=== PATIENT | female | born 1975 | race African-American/Black ===

== ENCOUNTER 2020-03-07 12:52 | Inpatient (IN) | payer MEDICAID, OTHER ==
[~2020-03-07] VITALS: Ht 160 cm; Wt 60.0 kg
[2020-03-07] MEDS ORDERED: DEXTROSE (50%) 50ML SYRG IV PRN (13:00)
[2020-03-07] MEDS ORDERED: INSULIN LANTUS (GLARGINE) 1 /0.01ml (100units/ml) SC ONE (13:00)
[2020-03-07] MEDS ORDERED: InsuLIN REG 1unit/0.01ml Soln (100units/ml) IV ONE (13:00)
[2020-03-07] MEDS ORDERED: SODIUM CHLORIDE 0.9% 1,000 ML IV ONE ×2 (13:00→21:45)
[2020-03-07] MEDS ORDERED: SODIUM BICARBONATE 8.4 % INJ 50ML VIAL IV ONE ×2 (14:00→21:45)
[2020-03-07] MEDS: ACCU-CHEK COMFORT CURVE STRIP VI SCH ×7 (15:43→22:35)
[2020-03-07] MEDS: InsuLIN R (HUMAN) 100 UNITS in SODIUM CHL 0.9% 99 ML IV SCH ×2 (17:04→18:31)
[2020-03-07 17:48] LABS: Basophils # (auto) 0.1 10 ^3/uL (0-0.2); Basophils % (auto) 0.3 % (0.0-2.0); Eosinophils # (auto) 0 10 ^3/uL (0-0.8); Hematocrit 36.2 % (36.0-46.0); Hemoglobin 10.3 g/dL (12.2-16.2); Lymphocytes # (auto) 1.4 10 ^3/uL (0.4-5.4); Lymphocytes % (auto) 5.9 % (10.0-50.0); Mean Corpuscular Hemoglobin 26.9 pg (28.0-32.0); Mean Corpuscular Hgb Conc. 28.5 g/dL (32.0-36.0); Mean Corpuscular Volume 94.4 fL (80.0-100.0); Monocytes # (auto) 1.5 10 ^3/uL (0-1.3); Monocytes % (auto) 6.6 % (0.0-12.0); Neutrophils # (auto) 20.2 10 ^3/uL (1.6-8.6); Neutrophils % (auto) 87.2 % (37.0-80.0); Nucleated Red Blood Cells % 0.1 %; Red Blood Cells 3.83 10^6/uL (4.0-5.20); Red Cell Distribution Width 16.8 % (11.8-14.3); White Blood Cell 23.2 10^3/uL (4.4-10.8)
[2020-03-07 17:55] LABS: Albumin 2.6 g/dL (3.4-5.0); Anion Gap 26 (5-15); Calcium 8.5 mg/dL (8.5-10.1); Chloride 102 mmol/L (98-107); Magnesium 3.4 mg/dL (1.6-2.6); Sodium 135 mmol/L (136-145)
[2020-03-07 17:57] LABS: Alanine Aminotransferase 24 U/L (13-56); Aspartate Aminotransferase 31 U/L (15-37); GFR African American 12 mL/min; GFR Non-African American 10 mL/min
[2020-03-07 17:59] LABS: Alkaline Phosphatase 302 U/L (45-117); Bilirubin, Total 0.5 mg/dL (0.2-1.0); Total Protein 8.2 g/dL (6.4-8.2)
[2020-03-07 20:08] LABS: BUN/Creatinine Ratio 22.2; Potassium 5.9 mmol/L (3.5-5.1)
[2020-03-07 20:09] LABS: Carbon Dioxide 7 mmol/L (21-32)
[2020-03-07 20:10] LABS: Blood Urea Nitrogen 111 mg/dL (7-18); Glucose 1091 mg/dL (74-106)
[2020-03-07] MEDS ORDERED: SODIUM BICARBONATE 8.4% INJ 50ML SYRINGE ONE (22:24)
[2020-03-07] MEDS ORDERED: InsuLIN R (HUMAN) 100 UNITS in SODIUM CHL 0.9% 99 ML IV SCH (22:30)
[2020-03-07] MEDS ORDERED: ACETAMINOPHEN 325 MG TAB PO PRN (22:45)
[2020-03-07] MEDS ORDERED: DOCUSATE SOD 100 MG CAP PO PRN (22:45)
[2020-03-07] MEDS ORDERED: MORPHINE SULFATE INJECTION 2 MG/ML SYRG IV PRN (22:45)
[2020-03-07] MEDS ORDERED: SODIUM CHLORIDE 0.9% 1,000 ML IV SCH (22:45)
[2020-03-07] MEDS ORDERED: NITROGLYCERIN 0.4 MG SL TAB SL PRN (22:45)
[2020-03-07] MEDS ORDERED: hydrALAZINE HCL 20 MG/ML VL IV PRN (23:00)
[2020-03-07] MEDS ORDERED: cefTRIAXone 1GM/50ML D5W 50 ML IV SCH (23:46)
[2020-03-08] MEDS: ACCU-CHEK COMFORT CURVE STRIP VI SCH ×12 (00:02→18:23)
[2020-03-08] MEDS: InsuLIN R (HUMAN) 100 UNITS in SODIUM CHL 0.9% 99 ML IV SCH ×2 (01:42→03:46)
[2020-03-08] MEDS ORDERED: InsuLIN REG 1unit/0.01ml Soln (100units/ml) ONE (03:31)
[2020-03-08] MEDS: HYDROcodone-ACET 5/325MG TAB PO PRN ×2 (03:46→21:09)
[2020-03-08 07:25] LABS: Alanine Aminotransferase 23 U/L (13-56); Albumin 2.7 g/dL (3.4-5.0); Anion Gap 12 (5-15); Aspartate Aminotransferase 22 U/L (15-37); BUN/Creatinine Ratio 24.6; Calcium 9.2 mg/dL (8.5-10.1); Carbon Dioxide 24 mmol/L (21-32); Chloride 114 mmol/L (98-107); GFR African American 15 mL/min; GFR Non-African American 12 mL/min; Potassium 3.7 mmol/L (3.5-5.1); Sodium 150 mmol/L (136-145)
[2020-03-08 07:28] LABS: Alkaline Phosphatase 275 U/L (45-117); Bilirubin, Total 0.2 mg/dL (0.2-1.0)
[2020-03-08 08:45] LABS: Basophils # (auto) 0.1 10 ^3/uL (0-0.2); Basophils % (auto) 0.5 % (0.0-2.0); Eosinophils # (auto) 0 10 ^3/uL (0-0.8); Hematocrit 31.4 % (36.0-46.0); Lymphocytes # (auto) 0.9 10 ^3/uL (0.4-5.4); Lymphocytes % (auto) 3.4 % (10.0-50.0); Mean Corpuscular Volume 78.3 fL (80.0-100.0); Monocytes # (auto) 1.4 10 ^3/uL (0-1.3); Monocytes % (auto) 5.1 % (0.0-12.0); Neutrophils # (auto) 24.3 10 ^3/uL (1.6-8.6); Nucleated Red Blood Cells % 0.1 %; Red Cell Distribution Width 15.2 % (11.8-14.3); White Blood Cell 26.7 10^3/uL (4.4-10.8)
[2020-03-08 09:32] LABS: Blood Urea Nitrogen 104 mg/dL (7-18); Glucose 443 mg/dL (74-106)
[2020-03-08] MEDS ORDERED: FAMOTIDINE (10MG/ML) 2ML VL IV SCH ×2 (10:00→16:45)
[2020-03-08] MEDS: INSULIN LANTUS (GLARGINE) 1 /0.01ml (100units/ml) SC SCH (10:24)
[2020-03-08] MEDS: HEPARIN SODIUM (PORCINE) 5000 UNITS/ML 1ML VIAL SC SCH ×2 (10:25→23:16)
[2020-03-08] MEDS ORDERED: SOD CHL 0.45% 1,000 ML IV ONE (11:15)
[2020-03-08] MEDS ORDERED: levoFLOXacin 500MG 100 ML IV ONE (12:00)
[2020-03-08] MEDS: SOD CHL 0.45% 1,000 ML IV SCH ×2 (12:26→18:29)
[2020-03-08] MEDS ORDERED: cefTRIAXone 1GM/50ML D5W 50 ML IV ONE (12:30)
[2020-03-08 12:48] LABS: Urine Bacteria MANY /hpf (None Seen); Urine Blood 3+ /uL (Negative); Urine Budding Yeast LOADED /hpf (None Seen); Urine WBC 3952 /hpf (0 - 5); Urine WBC Clumps PRESENT /hpf (None Seen)
[2020-03-08 12:58] LABS: Urine Specific Gravity 1.015 (1.001-1.035)
[2020-03-08] MEDS: LINEZOLID 600MG/300ML 300 ML IV SCH ×2 (13:47→23:16)
[2020-03-08] MEDS ORDERED: metroNIDAZOLE 500MG/100ML 100 ML IV SCH (14:00)
[2020-03-08] MEDS ORDERED: PANTOPRAZOLE 40 MG/10 ML VIAL INJ IV SCH (14:30)
[2020-03-08] MEDS ORDERED: PIPERACILLIN-TAZOB 3.375GM 100 ML IV ONE (14:30)
[2020-03-08] MEDS ORDERED: DEXTROSE (50%) 50ML SYRG IV PRN (16:15)
[2020-03-08] MEDS ORDERED: ACCU-CHEK COMFORT CURVE STRIP VI SCH (18:00)
[2020-03-08] MEDS: InsuLIN REG 1unit/0.01ml Soln (100units/ml) SC SCH (18:28)
[2020-03-08 19:42] LABS: Amylase 517 U/L (25-115)
[2020-03-08 19:51] LABS: Lipase 2576 U/L (73-393)
[2020-03-08] MEDS: PIPERACILLIN-TAZOB 2.25GM 50 ML IV SCH (20:24)
[2020-03-08] MEDS: BUDESONIDE (INHALATION) 180 MCG IH IN SCH (22:00)
[2020-03-09] MEDS: ACCU-CHEK COMFORT CURVE STRIP VI SCH ×5 (00:01→23:35)
[2020-03-09] MEDS: SOD CHL 0.45% 1,000 ML IV SCH ×4 (03:21→16:47)
[2020-03-09] MEDS: PIPERACILLIN-TAZOB 2.25GM 50 ML IV SCH ×3 (03:21→23:19)
[2020-03-09] MEDS: InsuLIN REG 1unit/0.01ml Soln (100units/ml) SC SCH ×5 (06:12→23:35)
[2020-03-09 06:28] LABS: Hematocrit 27.7 % (36.0-46.0); Hemoglobin 9.1 g/dL (12.2-16.2); Mean Corpuscular Hemoglobin 25.7 pg (28.0-32.0); Mean Corpuscular Hgb Conc. 32.8 g/dL (32.0-36.0); Mean Corpuscular Volume 78.2 fL (80.0-100.0); Red Blood Cells 3.54 10^6/uL (4.0-5.20); Red Cell Distribution Width 15.1 % (11.8-14.3); White Blood Cell 26.5 10^3/uL (4.4-10.8)
[2020-03-09 06:32] LABS: Basophils % (manual) 0 (0.0-2.0); Blast Cells 0; Eosinophils % (manual) 0 (0-7); Metamyelocytes % 0; Myelocytes % 0; Promyelocytes % 0; Reactive Lymphocytes 0
[2020-03-09 06:39] LABS: Albumin 2.3 g/dL (3.4-5.0); Potassium 3.4 mmol/L (3.5-5.1)
[2020-03-09 06:41] LABS: BUN/Creatinine Ratio 22.5
[2020-03-09 06:58] LABS: Bilirubin, Total 0.3 mg/dL (0.2-1.0); Total Protein 7.9 g/dL (6.4-8.2)
[2020-03-09 07:07] LABS: Band Neutrophils % (manual) 11; Lymphocytes % (manual) 8 (10.0-50.0); Monocytes % (manual) 6 (0-12)
[2020-03-09] MEDS ORDERED: cefTRIAXone 1GM/50ML D5W 50 ML IV SCH (09:00)
[2020-03-09] MEDS: BUDESONIDE (INHALATION) 180 MCG IH IN SCH ×2 (09:42→20:07)
[2020-03-09] MEDS ORDERED: FAMOTIDINE (10MG/ML) 2ML VL IV SCH (10:00)
[2020-03-09] MEDS: DexAMETHasone SOD PHOS 10MG/1ML VIAL INJ IV SCH (10:33)
[2020-03-09] MEDS: LINEZOLID 600MG/300ML 300 ML IV SCH (10:33)
[2020-03-09] MEDS: ZINC SULFATE 220mg CAP or TAB PO SCH (10:34)
[2020-03-09] MEDS: HEPARIN SODIUM (PORCINE) 5000 UNITS/ML 1ML VIAL SC SCH ×2 (10:39→23:02)
[2020-03-09] MEDS: ASCORBIC ACID 1,000 MG TAB PO SCH (10:39)
[2020-03-09] MEDS: CHOLECALCIFEROL (VITD3) 2,000 UNIT CAP/TAB PO SCH (10:39)
[2020-03-09] MEDS: INSULIN LANTUS (GLARGINE) 1 /0.01ml (100units/ml) SC SCH (10:40)
[2020-03-09] MEDS ORDERED: PANTOPRAZOLE 40 MG/10 ML VIAL INJ IV ONE (11:15)
[2020-03-09] MEDS ORDERED: POTASSIUM EFFERVESENT TAB 25 MEQ PO ONE (11:15)
[2020-03-09 16:08] LABS: Hemoglobin 8.8 g/dL (12.2-16.2)
[2020-03-09 16:17] LABS: INR 1.22 (0.9-1.15)
[2020-03-09] MEDS: HYDROcodone-ACET 5/325MG TAB PO PRN ×2 (16:39→23:31)
[2020-03-09 19:08] VITALS: BP 110/70
[2020-03-09 21:38] LABS: Hematocrit 26.2 % (36.0-46.0); Hemoglobin 8.5 g/dL (12.2-16.2)
[2020-03-09] MEDS ORDERED: PANTOPRAZOLE 40 MG/10 ML VIAL INJ IV SCH (22:00)
[2020-03-10] VITALS: BP 130/70
[2020-03-10] MEDS: LINEZOLID 600MG/300ML 300 ML IV SCH ×3 (00:18→23:22)
[2020-03-10 01:56] LABS: Hematocrit 25.7 % (36.0-46.0); Hemoglobin 8.2 g/dL (12.2-16.2)
[2020-03-10] MEDS: PIPERACILLIN-TAZOB 2.25GM 50 ML IV SCH ×3 (05:15→20:22)
[2020-03-10] MEDS: SOD CHL 0.45% 1,000 ML IV SCH ×3 (05:15→23:33)
[2020-03-10] MEDS: ACCU-CHEK COMFORT CURVE STRIP VI SCH ×4 (05:56→23:22)
[2020-03-10] MEDS: InsuLIN REG 1unit/0.01ml Soln (100units/ml) SC SCH ×4 (05:56→23:23)
[2020-03-10] MEDS: BUDESONIDE (INHALATION) 180 MCG IH IN SCH ×2 (05:59→18:20)
[2020-03-10 06:35] LABS: Eosinophils # (auto) 0 10 ^3/uL (0-0.8); Lymphocytes # (auto) 1.4 10 ^3/uL (0.4-5.4); Monocytes # (auto) 0.3 10 ^3/uL (0-1.3); Neutrophils % (auto) 91.6 % (37.0-80.0); Nucleated Red Blood Cells % 0.4 %
[2020-03-10 06:38] LABS: Basophils # (auto) 0.2 10 ^3/uL (0-0.2); Basophils % (auto) 0.7 % (0.0-2.0); Hematocrit 25.6 % (36.0-46.0); Hemoglobin 8.4 g/dL (12.2-16.2); Lymphocytes % (auto) 6.2 % (10.0-50.0); Mean Corpuscular Hemoglobin 25.9 pg (28.0-32.0); Mean Corpuscular Hgb Conc. 32.8 g/dL (32.0-36.0); Mean Corpuscular Volume 78.8 fL (80.0-100.0); Monocytes % (auto) 1.5 % (0.0-12.0); Neutrophils # (auto) 20.9 10 ^3/uL (1.6-8.6); Red Blood Cells 3.24 10^6/uL (4.0-5.20); Red Cell Distribution Width 15.2 % (11.8-14.3); White Blood Cell 22.9 10^3/uL (4.4-10.8)
[2020-03-10] MEDS: ONDANSETRON HCL 4 MG/2 ML VIAL IV PRN (06:48)
[2020-03-10] MEDS: ALBUTEROL SULF HFA 90MCG INH 200DOSE IN PRN (07:20)
[2020-03-10 07:58] VITALS: BP 137/86
[2020-03-10 08:18] LABS: Albumin 1.9 g/dL (3.4-5.0); BUN/Creatinine Ratio 19.2; Calcium 8.6 mg/dL (8.5-10.1); Potassium 3.4 mmol/L (3.5-5.1)
[2020-03-10 08:21] LABS: Bilirubin, Total 0.3 mg/dL (0.2-1.0); Total Protein 7.1 g/dL (6.4-8.2)
[2020-03-10] MEDS: PANTOPRAZOLE 40 MG TAB PO SCH (09:37)
[2020-03-10] MEDS: ASCORBIC ACID 1,000 MG TAB PO SCH (09:38)
[2020-03-10] MEDS: DexAMETHasone SOD PHOS 10MG/1ML VIAL INJ IV SCH (09:38)
[2020-03-10] MEDS: ZINC SULFATE 220mg CAP or TAB PO SCH (09:38)
[2020-03-10] MEDS: HEPARIN SODIUM (PORCINE) 5000 UNITS/ML 1ML VIAL SC SCH ×2 (09:40→23:23)
[2020-03-10] MEDS: INSULIN LANTUS (GLARGINE) 1 /0.01ml (100units/ml) SC SCH (09:40)
[2020-03-10] MEDS ORDERED: levoFLOXacin 250MG 50 ML IV SCH (10:00)
[2020-03-10] MEDS: CHOLECALCIFEROL (VITD3) 2,000 UNIT CAP/TAB PO SCH (10:00)
[2020-03-10] MEDS: HYDROcodone-ACET 5/325MG TAB PO PRN ×3 (11:00→21:31)
[2020-03-10 16:00] VITALS: BP 119/78
[2020-03-10 19:00] VITALS: BP 110/70
[2020-03-11] VITALS: BP 97/64
[2020-03-11] MEDS ORDERED: ATOR20TA PO (01:13)
[2020-03-11] MEDS: PIPERACILLIN-TAZOB 2.25GM 50 ML IV SCH (04:00)
[2020-03-11] MEDS: HYDROcodone-ACET 5/325MG TAB PO PRN (05:50)
[2020-03-11] MEDS: InsuLIN REG 1unit/0.01ml Soln (100units/ml) SC SCH ×4 (05:51→23:15)
[2020-03-11] MEDS: ACCU-CHEK COMFORT CURVE STRIP VI SCH ×4 (05:51→23:03)
[2020-03-11] MEDS: ALBUTEROL SULF HFA 90MCG INH 200DOSE IN PRN ×2 (05:53→19:08)
[2020-03-11] MEDS: BUDESONIDE (INHALATION) 180 MCG IH IN SCH ×2 (05:53→19:08)
[2020-03-11 07:01] LABS: Basophils # (auto) 0.1 10 ^3/uL (0-0.2); Hemoglobin 8.1 g/dL (12.2-16.2); Lymphocytes # (auto) 1.8 10 ^3/uL (0.4-5.4); Monocytes # (auto) 0.3 10 ^3/uL (0-1.3); Neutrophils # (auto) 10.2 10 ^3/uL (1.6-8.6)
[2020-03-11 07:03] LABS: Basophils % (auto) 0.9 % (0.0-2.0); Eosinophils # (auto) 0 10 ^3/uL (0-0.8); Eosinophils % (auto) 0.4 % (0.0-7.0); Hematocrit 24.5 % (36.0-46.0); Lymphocytes % (auto) 14.5 % (10.0-50.0); Mean Corpuscular Hemoglobin 25.9 pg (28.0-32.0); Mean Corpuscular Hgb Conc. 32.9 g/dL (32.0-36.0); Mean Corpuscular Volume 78.9 fL (80.0-100.0); Monocytes % (auto) 2.7 % (0.0-12.0); Neutrophils % (auto) 81.5 % (37.0-80.0); Nucleated Red Blood Cells % 0.2 %; Red Cell Distribution Width 15.2 % (11.8-14.3); White Blood Cell 12.6 10^3/uL (4.4-10.8)
[2020-03-11 07:25] LABS: Potassium 3.1 mmol/L (3.5-5.1)
[2020-03-11 07:34] LABS: BUN/Creatinine Ratio 15.5; Calcium 8.3 mg/dL (8.5-10.1)
[2020-03-11 08:00] VITALS: BP 115/66
[2020-03-11] MEDS: CHOLECALCIFEROL (VITD3) 2,000 UNIT CAP/TAB PO SCH (08:09)
[2020-03-11] MEDS: ZINC SULFATE 220mg CAP or TAB PO SCH (08:09)
[2020-03-11] MEDS: ASCORBIC ACID 1,000 MG TAB PO SCH (08:09)
[2020-03-11] MEDS: SOD CHL 0.45% 1,000 ML IV SCH ×2 (08:09→12:26)
[2020-03-11] MEDS: PANTOPRAZOLE 40 MG TAB PO SCH ×2 (08:09→22:08)
[2020-03-11] MEDS: LINEZOLID 600MG/300ML 300 ML IV SCH (08:10)
[2020-03-11] MEDS: HEPARIN SODIUM (PORCINE) 5000 UNITS/ML 1ML VIAL SC SCH ×2 (08:11→22:02)
[2020-03-11] MEDS: INSULIN LANTUS (GLARGINE) 1 /0.01ml (100units/ml) SC SCH (10:00)
[2020-03-11] MEDS ORDERED: POTASSIUM CHL 20 Meq TABLET PO ONE (11:30)
[2020-03-11] MEDS ORDERED: PIPERACILLIN-TAZOB 2.25GM 50 ML IV SCH (12:00)
[2020-03-11] MEDS ORDERED: ERGOCALCIFEROL 50,000 UNIT(1.25MG) CAP PO ONE (12:30)
[2020-03-11 16:00] VITALS: BP 108/70
[2020-03-11] MEDS: VANCOMYCIN HCL 125MG/5ML ORAL SOL PO SCH ×2 (17:05→23:03)
[2020-03-11] MEDS: MORPHINE SULFATE INJECTION 2 MG/ML SYRG IV PRN (22:09)
[2020-03-12] VITALS: BP 116/75
[2020-03-12] MEDS: SOD CHL 0.45% 1,000 ML IV SCH ×2 (01:43→14:10)
[2020-03-12 05:46] LABS: Basophils # (auto) 0.1 10 ^3/uL (0-0.2); Eosinophils # (auto) 0 10 ^3/uL (0-0.8); Eosinophils % (auto) 0.2 % (0.0-7.0); Hemoglobin 8.5 g/dL (12.2-16.2); Lymphocytes # (auto) 1.7 10 ^3/uL (0.4-5.4); Monocytes # (auto) 0.5 10 ^3/uL (0-1.3); Red Cell Distribution Width 15.4 % (11.8-14.3); White Blood Cell 9.4 10^3/uL (4.4-10.8)
[2020-03-12 05:50] LABS: Basophils % (auto) 0.9 % (0.0-2.0); Hematocrit 25.9 % (36.0-46.0); Lymphocytes % (auto) 18.2 % (10.0-50.0); Mean Corpuscular Hgb Conc. 32.9 g/dL (32.0-36.0); Monocytes % (auto) 5.2 % (0.0-12.0); Neutrophils # (auto) 7.1 10 ^3/uL (1.6-8.6); Neutrophils % (auto) 75.5 % (37.0-80.0); Nucleated Red Blood Cells % 0.3 %; Red Blood Cells 3.27 10^6/uL (4.0-5.20)
[2020-03-12] MEDS: ACCU-CHEK COMFORT CURVE STRIP VI SCH ×3 (05:53→17:45)
[2020-03-12] MEDS: InsuLIN REG 1unit/0.01ml Soln (100units/ml) SC SCH ×3 (05:53→17:59)
[2020-03-12] MEDS: VANCOMYCIN HCL 125MG/5ML ORAL SOL PO SCH ×4 (05:53→22:07)
[2020-03-12 06:05] LABS: BUN/Creatinine Ratio 12.2; Potassium 3.6 mmol/L (3.5-5.1)
[2020-03-12] MEDS: ALBUTEROL SULF HFA 90MCG INH 200DOSE IN PRN ×2 (06:19→19:09)
[2020-03-12] MEDS: BUDESONIDE (INHALATION) 180 MCG IH IN SCH ×2 (06:19→19:09)
[2020-03-12 08:24] VITALS: BP 119/71
[2020-03-12] MEDS: ZINC SULFATE 220mg CAP or TAB PO SCH (10:07)
[2020-03-12] MEDS: ASCORBIC ACID 1,000 MG TAB PO SCH (10:08)
[2020-03-12] MEDS: PANTOPRAZOLE 40 MG TAB PO SCH (10:08)
[2020-03-12] MEDS: CHOLECALCIFEROL (VITD3) 2,000 UNIT CAP/TAB PO SCH (10:08)
[2020-03-12] MEDS: FLORASTOR (S. BOULARDII) 250 MG CAP PO SCH (10:08)
[2020-03-12] MEDS: INSULIN LANTUS (GLARGINE) 1 /0.01ml (100units/ml) SC SCH (10:10)
[2020-03-12] MEDS: HEPARIN SODIUM (PORCINE) 5000 UNITS/ML 1ML VIAL SC SCH ×2 (10:11→22:00)
[2020-03-12 16:00] VITALS: BP 104/67
[2020-03-12] MEDS: HYDROcodone-ACET 5/325MG TAB PO PRN (20:17)
[2020-03-13] VITALS: BP 103/66
[2020-03-13] MEDS: InsuLIN REG 1unit/0.01ml Soln (100units/ml) SC SCH ×4 (00:17→18:00)
[2020-03-13] MEDS: ACCU-CHEK COMFORT CURVE STRIP VI SCH ×4 (00:17→18:04)
[2020-03-13] MEDS: SOD CHL 0.45% 1,000 ML IV SCH ×2 (03:48→16:50)
[2020-03-13] MEDS: VANCOMYCIN HCL 125MG/5ML ORAL SOL PO SCH ×4 (06:01→22:21)
[2020-03-13 06:42] LABS: BUN/Creatinine Ratio 12.1; Calcium 8.3 mg/dL (8.5-10.1); Potassium 3.6 mmol/L (3.5-5.1)
[2020-03-13] MEDS: BUDESONIDE (INHALATION) 180 MCG IH IN SCH ×2 (06:52→20:25)
[2020-03-13] MEDS: ALBUTEROL SULF HFA 90MCG INH 200DOSE IN PRN ×2 (06:52→20:25)
[2020-03-13] MEDS: HYDROcodone-ACET 5/325MG TAB PO PRN ×2 (07:10→20:45)
[2020-03-13 08:00] VITALS: BP 127/69
[2020-03-13] MEDS: ZINC SULFATE 220mg CAP or TAB PO SCH (09:34)
[2020-03-13] MEDS: FLORASTOR (S. BOULARDII) 250 MG CAP PO SCH (09:34)
[2020-03-13] MEDS: ASCORBIC ACID 1,000 MG TAB PO SCH (09:35)
[2020-03-13] MEDS: CHOLECALCIFEROL (VITD3) 2,000 UNIT CAP/TAB PO SCH (09:35)
[2020-03-13] MEDS: HEPARIN SODIUM (PORCINE) 5000 UNITS/ML 1ML VIAL SC SCH ×2 (09:35→22:21)
[2020-03-13] MEDS: PANTOPRAZOLE 40 MG TAB PO SCH (09:35)
[2020-03-13] MEDS: INSULIN LANTUS (GLARGINE) 1 /0.01ml (100units/ml) SC SCH (09:36)
[2020-03-13] MEDS ORDERED: cefTRIAXone 1GM/50ML D5W 50 ML IV ONE (11:45)
[2020-03-13] MEDS ORDERED: PHENAZOPYRIDINE HCL 100 MG TAB PO ONE (11:45)
[2020-03-13] MEDS: HYOSCYAMINE SULF 0.125 MG ODT TAB PO PRN (12:07)
[2020-03-13] MEDS ORDERED: FLUCONAZOLE 200MG/100ML 100 ML IV ONE (12:30)
[2020-03-13 12:38] LABS: Urine Bacteria MANY /hpf (None Seen); Urine Blood 2+ /uL (Negative); Urine Budding Yeast MANY /hpf (None Seen); Urine WBC 3880 /hpf (0 - 5)
[2020-03-13 12:42] LABS: Urine Specific Gravity 1.012 (1.001-1.035)
[2020-03-13] MEDS: ONDANSETRON HCL 4 MG/2 ML VIAL IV PRN (14:31)
[2020-03-13] MEDS: metroNIDAZOLE 500MG/100ML 100 ML IV SCH ×2 (15:20→22:21)
[2020-03-13 16:00] VITALS: BP 134/89
[2020-03-13] MEDS: PHENAZOPYRIDINE HCL 100 MG TAB PO SCH (18:04)
[2020-03-14] VITALS: BP 112/70
[2020-03-14] MEDS: ACCU-CHEK COMFORT CURVE STRIP VI SCH ×5 (00:21→23:43)
[2020-03-14] MEDS: VANCOMYCIN HCL 125MG/5ML ORAL SOL PO SCH ×4 (05:33→21:48)
[2020-03-14] MEDS: metroNIDAZOLE 500MG/100ML 100 ML IV SCH (05:33)
[2020-03-14] MEDS: InsuLIN REG 1unit/0.01ml Soln (100units/ml) SC SCH ×5 (05:42→23:43)
[2020-03-14] MEDS: HYDROcodone-ACET 5/325MG TAB PO PRN ×3 (05:46→23:25)
[2020-03-14] MEDS: SOD CHL 0.45% 1,000 ML IV SCH ×2 (06:19→19:30)
[2020-03-14 06:47] LABS: BUN/Creatinine Ratio 6.9; Calcium 8.3 mg/dL (8.5-10.1); Potassium 3.5 mmol/L (3.5-5.1)
[2020-03-14 07:58] VITALS: BP 103/63
[2020-03-14] MEDS: ALBUTEROL SULF HFA 90MCG INH 200DOSE IN PRN ×2 (08:20→20:47)
[2020-03-14] MEDS: BUDESONIDE (INHALATION) 180 MCG IH IN SCH ×2 (08:20→20:47)
[2020-03-14] MEDS: PHENAZOPYRIDINE HCL 100 MG TAB PO SCH ×3 (08:29→18:19)
[2020-03-14] MEDS: cefTRIAXone 1GM/50ML D5W 50 ML IV SCH (08:30)
[2020-03-14] MEDS: ZINC SULFATE 220mg CAP or TAB PO SCH (09:42)
[2020-03-14] MEDS: PANTOPRAZOLE 40 MG TAB PO SCH (09:42)
[2020-03-14] MEDS: FLUCONAZOLE 200MG/100ML 100 ML IV SCH (09:42)
[2020-03-14] MEDS: CHOLECALCIFEROL (VITD3) 2,000 UNIT CAP/TAB PO SCH (09:42)
[2020-03-14] MEDS: FLORASTOR (S. BOULARDII) 250 MG CAP PO SCH (09:42)
[2020-03-14] MEDS: ASCORBIC ACID 1,000 MG TAB PO SCH (09:42)
[2020-03-14] MEDS: HEPARIN SODIUM (PORCINE) 5000 UNITS/ML 1ML VIAL SC SCH ×2 (09:43→21:48)
[2020-03-14] MEDS: INSULIN LANTUS (GLARGINE) 1 /0.01ml (100units/ml) SC SCH (09:44)
[2020-03-14] MEDS: ONDANSETRON HCL 4 MG/2 ML VIAL IV PRN (13:30)
[2020-03-14 16:00] VITALS: BP 93/60
[2020-03-15] VITALS (9 sets, daily range): BP systolic 109–131; BP diastolic 68–78
[2020-03-15] MEDS: VANCOMYCIN HCL 125MG/5ML ORAL SOL PO SCH ×4 (05:22→22:15)
[2020-03-15] MEDS: InsuLIN REG 1unit/0.01ml Soln (100units/ml) SC SCH ×3 (05:22→17:11)
[2020-03-15] MEDS: ACCU-CHEK COMFORT CURVE STRIP VI SCH ×3 (05:22→17:11)
[2020-03-15] MEDS: cefTRIAXone 1GM/50ML D5W 50 ML IV SCH (08:43)
[2020-03-15] MEDS: FLUCONAZOLE 200MG/100ML 100 ML IV SCH (08:43)
[2020-03-15] MEDS: PHENAZOPYRIDINE HCL 100 MG TAB PO SCH ×2 (08:44→13:09)
[2020-03-15] MEDS: CHOLECALCIFEROL (VITD3) 2,000 UNIT CAP/TAB PO SCH (08:44)
[2020-03-15] MEDS: PANTOPRAZOLE 40 MG TAB PO SCH ×2 (08:45→22:16)
[2020-03-15] MEDS: ASCORBIC ACID 1,000 MG TAB PO SCH (08:45)
[2020-03-15] MEDS: HEPARIN SODIUM (PORCINE) 5000 UNITS/ML 1ML VIAL SC SCH ×2 (08:45→22:19)
[2020-03-15] MEDS: FLORASTOR (S. BOULARDII) 250 MG CAP PO SCH (08:45)
[2020-03-15] MEDS: SOD CHL 0.45% 1,000 ML IV SCH ×2 (08:46→22:10)
[2020-03-15 09:00] LABS: Hematocrit 21.2 % (36.0-46.0); Mean Corpuscular Hemoglobin 26.2 pg (28.0-32.0); Mean Corpuscular Hgb Conc. 33.1 g/dL (32.0-36.0); Mean Corpuscular Volume 79.1 fL (80.0-100.0); Red Blood Cells 2.68 10^6/uL (4.0-5.20); Red Cell Distribution Width 14.9 % (11.8-14.3)
[2020-03-15 09:08] LABS: Basophils % (manual) 0 (0.0-2.0); Blast Cells 0; Myelocytes % 0; Reactive Lymphocytes 0
[2020-03-15 09:10] LABS: Calcium 7.8 mg/dL (8.5-10.1); Potassium 3.5 mmol/L (3.5-5.1)
[2020-03-15 09:12] LABS: BUN/Creatinine Ratio 5.2
[2020-03-15] MEDS: BUDESONIDE (INHALATION) 180 MCG IH IN SCH ×2 (09:33→18:48)
[2020-03-15] MEDS: INSULIN LANTUS (GLARGINE) 1 /0.01ml (100units/ml) SC SCH (09:35)
[2020-03-15] MEDS: ONDANSETRON HCL 4 MG/2 ML VIAL IV PRN ×2 (09:40→19:37)
[2020-03-15] MEDS: ALBUTEROL SULF HFA 90MCG INH 200DOSE IN PRN ×2 (10:17→20:06)
[2020-03-15 11:42] LABS: Band Neutrophils % (manual) 2; Eosinophils % (manual) 1 (0-7); Lymphocytes % (manual) 14 (10.0-50.0); Metamyelocytes % 2; Monocytes % (manual) 14 (0-12); Promyelocytes % 1
[2020-03-15] MEDS: MORPHINE SULFATE INJECTION 2 MG/ML SYRG IV PRN (21:18)
[2020-03-16] MEDS: ACCU-CHEK COMFORT CURVE STRIP VI SCH ×4 (00:08→17:49)
[2020-03-16] MEDS: InsuLIN REG 1unit/0.01ml Soln (100units/ml) SC SCH ×4 (00:13→18:00)
[2020-03-16 05:55] LABS: Hematocrit 23.3 % (36.0-46.0); Hemoglobin 7.8 g/dL (12.2-16.2); Mean Corpuscular Hemoglobin 26.4 pg (28.0-32.0); Mean Corpuscular Hgb Conc. 33.2 g/dL (32.0-36.0); Mean Corpuscular Volume 79.6 fL (80.0-100.0); Red Blood Cells 2.93 10^6/uL (4.0-5.20); Red Cell Distribution Width 15.5 % (11.8-14.3); White Blood Cell 12.5 10^3/uL (4.4-10.8)
[2020-03-16 05:58] LABS: Basophils % (manual) 0 (0.0-2.0); Blast Cells 0; Eosinophils % (manual) 0 (0-7); Promyelocytes % 0; Reactive Lymphocytes 0
[2020-03-16] MEDS: VANCOMYCIN HCL 125MG/5ML ORAL SOL PO SCH ×4 (06:06→22:22)
[2020-03-16 07:17] LABS: Band Neutrophils % (manual) 2; Lymphocytes % (manual) 11 (10.0-50.0); Metamyelocytes % 5; Monocytes % (manual) 19 (0-12); Myelocytes % 1
[2020-03-16] MEDS: BUDESONIDE (INHALATION) 180 MCG IH IN SCH ×2 (07:30→18:16)
[2020-03-16] MEDS: cefTRIAXone 1GM/50ML D5W 50 ML IV SCH (07:56)
[2020-03-16] MEDS: FLUCONAZOLE 200MG/100ML 100 ML IV SCH (07:56)
[2020-03-16] MEDS: ASCORBIC ACID 1,000 MG TAB PO SCH (07:57)
[2020-03-16] MEDS: FLORASTOR (S. BOULARDII) 250 MG CAP PO SCH (07:57)
[2020-03-16] MEDS: CHOLECALCIFEROL (VITD3) 2,000 UNIT CAP/TAB PO SCH (07:57)
[2020-03-16] MEDS: PANTOPRAZOLE 40 MG TAB PO SCH ×2 (07:57→22:23)
[2020-03-16] MEDS: HEPARIN SODIUM (PORCINE) 5000 UNITS/ML 1ML VIAL SC SCH ×2 (07:58→22:32)
[2020-03-16 08:00] VITALS: BP 138/84
[2020-03-16] MEDS: INSULIN LANTUS (GLARGINE) 1 /0.01ml (100units/ml) SC SCH (10:00)
[2020-03-16] MEDS: SOD CHL 0.45% 1,000 ML IV SCH (10:40)
[2020-03-16] MEDS: HYDROcodone-ACET 5/325MG TAB PO PRN ×2 (14:45→22:51)
[2020-03-16 16:00] VITALS: BP 132/84
[2020-03-16] MEDS: ALBUTEROL SULF HFA 90MCG INH 200DOSE IN PRN (18:16)
[2020-03-16] MEDS: ONDANSETRON HCL 4 MG/2 ML VIAL IV PRN (22:49)
[2020-03-17] VITALS: BP 129/82
[2020-03-17] MEDS: ACCU-CHEK COMFORT CURVE STRIP VI SCH ×4 (00:21→18:13)
[2020-03-17] MEDS: diphenhdrAMINE HCL 50 MG/1 ML VL IV PRN ×2 (00:22→04:28)
[2020-03-17] MEDS: InsuLIN REG 1unit/0.01ml Soln (100units/ml) SC SCH ×4 (00:24→18:14)
[2020-03-17] MEDS: SOD CHL 0.45% 1,000 ML IV SCH ×2 (00:57→14:26)
[2020-03-17] MEDS: HYDROcodone-ACET 5/325MG TAB PO PRN ×2 (04:27→23:46)
[2020-03-17 05:54] LABS: Hematocrit 26.4 % (36.0-46.0); Hemoglobin 8.6 g/dL (12.2-16.2); Mean Corpuscular Hemoglobin 26.2 pg (28.0-32.0); Mean Corpuscular Hgb Conc. 32.5 g/dL (32.0-36.0); Mean Corpuscular Volume 80.8 fL (80.0-100.0); Red Blood Cells 3.26 10^6/uL (4.0-5.20); Red Cell Distribution Width 15.2 % (11.8-14.3)
[2020-03-17] MEDS: VANCOMYCIN HCL 125MG/5ML ORAL SOL PO SCH ×4 (05:59→22:13)
[2020-03-17 06:02] LABS: Basophils % (manual) 0 (0.0-2.0); Blast Cells 0; Metamyelocytes % 0; Promyelocytes % 0; Reactive Lymphocytes 0
[2020-03-17 06:08] LABS: INR 1.17 (0.9-1.15); Partial Thromboplastin Time 27.6 sec (23.0-31.2)
[2020-03-17 06:18] LABS: Potassium 3.2 mmol/L (3.5-5.1)
[2020-03-17] MEDS: BUDESONIDE (INHALATION) 180 MCG IH IN SCH ×2 (06:18→18:27)
[2020-03-17 06:38] LABS: Albumin 1.7 g/dL (3.4-5.0); BUN/Creatinine Ratio 3.6; Bilirubin, Total 0.1 mg/dL (0.2-1.0); Calcium 7.7 mg/dL (8.5-10.1); Magnesium 1.4 mg/dL (1.6-2.6); Phosphorus 2.3 mg/dL (2.5-4.90)
[2020-03-17 06:50] LABS: Band Neutrophils % (manual) 6; Eosinophils % (manual) 2 (0-7); Lymphocytes % (manual) 28 (10.0-50.0); Monocytes % (manual) 11 (0-12); Myelocytes % 7
[2020-03-17 08:00] VITALS: BP 127/76
[2020-03-17] MEDS ORDERED: LIDOCAINE VISCOUS 2% 15ML UD ONE (08:06)
[2020-03-17] MEDS ORDERED: MIDAZOLAM HCL 5 MG/ML-1ML VIAL ONE (08:07)
[2020-03-17] MEDS ORDERED: diphenhdrAMINE HCL 50 MG/1 ML VL ONE (08:08)
[2020-03-17] MEDS ORDERED: fentaNYL CITRATE 100 MCG/2 ML VL ONE (08:08)
[2020-03-17] MEDS: FLORASTOR (S. BOULARDII) 250 MG CAP PO SCH (08:23)
[2020-03-17] MEDS: ASCORBIC ACID 1,000 MG TAB PO SCH (08:23)
[2020-03-17] MEDS: PANTOPRAZOLE 40 MG TAB PO SCH ×2 (08:23→22:19)
[2020-03-17] MEDS: CHOLECALCIFEROL (VITD3) 2,000 UNIT CAP/TAB PO SCH (08:24)
[2020-03-17] MEDS: HEPARIN SODIUM (PORCINE) 5000 UNITS/ML 1ML VIAL SC SCH ×2 (08:24→22:18)
[2020-03-17] MEDS: cefTRIAXone 1GM/50ML D5W 50 ML IV SCH (09:00)
[2020-03-17] MEDS ORDERED: POTASSIUM CHL 20 Meq TABLET PO ONE (09:15)
[2020-03-17] MEDS: FLUCONAZOLE 200MG/100ML 100 ML IV SCH (10:00)
[2020-03-17] MEDS: INSULIN LANTUS (GLARGINE) 1 /0.01ml (100units/ml) SC SCH (10:00)
[2020-03-17] MEDS ORDERED: ERTAPENEM SOD INJ 1 GM in SODIUM CHL 0.9% 50 ML IV ONE (11:45)
[2020-03-17 16:00] VITALS: BP 145/95
[2020-03-17] MEDS: ALBUTEROL SULF HFA 90MCG INH 200DOSE IN PRN (18:27)
[2020-03-17] MEDS: HYOSCYAMINE SULF 0.125 MG ODT TAB PO PRN (18:48)
[2020-03-18] VITALS: BP 141/87
[2020-03-18] MEDS: ACCU-CHEK COMFORT CURVE STRIP VI SCH ×5 (00:09→23:24)
[2020-03-18] MEDS: InsuLIN REG 1unit/0.01ml Soln (100units/ml) SC SCH ×5 (00:29→23:40)
[2020-03-18] MEDS: SOD CHL 0.45% 1,000 ML IV SCH ×2 (03:48→18:56)
[2020-03-18 05:39] LABS: Basophils # (auto) 0.1 10 ^3/uL (0-0.2); Basophils % (auto) 0.6 % (0.0-2.0); Eosinophils # (auto) 0.1 10 ^3/uL (0-0.8); Lymphocytes # (auto) 2.8 10 ^3/uL (0.4-5.4); Lymphocytes % (auto) 23.1 % (10.0-50.0); Monocytes # (auto) 1.2 10 ^3/uL (0-1.3)
[2020-03-18 05:40] LABS: Eosinophils % (auto) 0.7 % (0.0-7.0); Hemoglobin 7.5 g/dL (12.2-16.2); Mean Corpuscular Hemoglobin 26.4 pg (28.0-32.0); Mean Corpuscular Hgb Conc. 32.7 g/dL (32.0-36.0); Mean Corpuscular Volume 80.7 fL (80.0-100.0); Monocytes % (auto) 9.6 % (0.0-12.0); Nucleated Red Blood Cells % 0.9 %; Red Blood Cells 2.86 10^6/uL (4.0-5.20); Red Cell Distribution Width 15.5 % (11.8-14.3); White Blood Cell 12.1 10^3/uL (4.4-10.8)
[2020-03-18] MEDS: VANCOMYCIN HCL 125MG/5ML ORAL SOL PO SCH ×4 (05:51→21:22)
[2020-03-18 05:52] LABS: BUN/Creatinine Ratio 4.8; Calcium 7.3 mg/dL (8.5-10.1); Potassium 3.5 mmol/L (3.5-5.1)
[2020-03-18] MEDS: diphenhdrAMINE HCL 50 MG/1 ML VL IV PRN (05:55)
[2020-03-18] MEDS: HYDROcodone-ACET 5/325MG TAB PO PRN (06:00)
[2020-03-18] MEDS: ALBUTEROL SULF HFA 90MCG INH 200DOSE IN PRN (06:51)
[2020-03-18] MEDS: BUDESONIDE (INHALATION) 180 MCG IH IN SCH ×2 (06:51→18:39)
[2020-03-18 07:48] VITALS: BP 112/66
[2020-03-18] MEDS: HEPARIN SODIUM (PORCINE) 5000 UNITS/ML 1ML VIAL SC SCH (10:00)
[2020-03-18] MEDS: ASCORBIC ACID 1,000 MG TAB PO SCH (10:22)
[2020-03-18] MEDS: PANTOPRAZOLE 40 MG TAB PO SCH ×2 (10:22→21:22)
[2020-03-18] MEDS: FLORASTOR (S. BOULARDII) 250 MG CAP PO SCH (10:22)
[2020-03-18] MEDS: ERTAPENEM SOD INJ 1 GM in SODIUM CHL 0.9% 50 ML IV SCH (10:22)
[2020-03-18] MEDS: CHOLECALCIFEROL (VITD3) 2,000 UNIT CAP/TAB PO SCH (10:23)
[2020-03-18] MEDS: INSULIN LANTUS (GLARGINE) 1 /0.01ml (100units/ml) SC SCH (10:24)
[2020-03-18] MEDS: FLUCONAZOLE 200MG/100ML 100 ML IV SCH (10:50)
[2020-03-18] MEDS: ONDANSETRON HCL 4 MG/2 ML VIAL IV PRN ×2 (12:01→18:56)
[2020-03-18 15:48] VITALS: BP 149/95
[2020-03-18] MEDS: FERROUS SULFATE 325mg EC TAB PO SCH (17:45)
[2020-03-18] MEDS ORDERED: PROMETHAZINE HCL 25 MG/ML 1ML IV ONE (21:15)
[2020-03-19] VITALS: BP 138/85
[2020-03-19 05:20] LABS: Basophils # (auto) 0.1 10 ^3/uL (0-0.2); Hemoglobin 8.1 g/dL (12.2-16.2)
[2020-03-19 05:22] LABS: Basophils % (auto) 0.6 % (0.0-2.0); Eosinophils # (auto) 0.1 10 ^3/uL (0-0.8); Eosinophils % (auto) 0.6 % (0.0-7.0); Hematocrit 24.2 % (36.0-46.0); Lymphocytes # (auto) 2.1 10 ^3/uL (0.4-5.4); Mean Corpuscular Hemoglobin 26.7 pg (28.0-32.0); Mean Corpuscular Hgb Conc. 33.3 g/dL (32.0-36.0); Monocytes % (auto) 8.4 % (0.0-12.0); Neutrophils # (auto) 8.3 10 ^3/uL (1.6-8.6); Neutrophils % (auto) 72.4 % (37.0-80.0); Red Blood Cells 3.02 10^6/uL (4.0-5.20); Red Cell Distribution Width 15.3 % (11.8-14.3); White Blood Cell 11.5 10^3/uL (4.4-10.8)
[2020-03-19] MEDS: ACCU-CHEK COMFORT CURVE STRIP VI SCH ×4 (05:43→22:44)
[2020-03-19] MEDS: VANCOMYCIN HCL 125MG/5ML ORAL SOL PO SCH ×4 (05:44→22:44)
[2020-03-19] MEDS: SOD CHL 0.45% 1,000 ML IV SCH (05:54)
[2020-03-19] MEDS: InsuLIN REG 1unit/0.01ml Soln (100units/ml) SC SCH ×4 (05:54→22:44)
[2020-03-19] MEDS: ALBUTEROL SULF HFA 90MCG INH 200DOSE IN PRN ×2 (06:23→22:22)
[2020-03-19] MEDS: BUDESONIDE (INHALATION) 180 MCG IH IN SCH ×2 (06:23→22:22)
[2020-03-19 08:00] VITALS: BP 129/87
[2020-03-19] MEDS: FERROUS SULFATE 325mg EC TAB PO SCH (08:24)
[2020-03-19] MEDS: ERTAPENEM SOD INJ 1 GM in SODIUM CHL 0.9% 50 ML IV SCH (09:25)
[2020-03-19] MEDS: FLORASTOR (S. BOULARDII) 250 MG CAP PO SCH (09:26)
[2020-03-19] MEDS: ASCORBIC ACID 1,000 MG TAB PO SCH (09:26)
[2020-03-19] MEDS: CHOLECALCIFEROL (VITD3) 2,000 UNIT CAP/TAB PO SCH (09:26)
[2020-03-19] MEDS: PANTOPRAZOLE 40 MG TAB PO SCH (09:26)
[2020-03-19] MEDS: INSULIN LANTUS (GLARGINE) 1 /0.01ml (100units/ml) SC SCH (09:40)
[2020-03-19] MEDS: medroxyPROGESTERone ACETATE 5 MG TAB PO SCH (10:00)
[2020-03-19] MEDS: FLUCONAZOLE 200MG/100ML 100 ML IV SCH (10:37)
[2020-03-19] MEDS ORDERED: SOD CHL 0.45% 1,000 ML IV SCH (12:30)
[2020-03-19 16:00] VITALS: BP 152/105
[2020-03-19] MEDS ORDERED: MIDAZOLAM HCL 2MG/2ML 2ml VIAL (1mg/ml) ONE (17:36)
[2020-03-19] MEDS ORDERED: PROPOFOL 10 MG/ML 20 ML IV ONE (17:40)
[2020-03-19] MEDS ORDERED: fentaNYL CITRATE 100 MCG/2 ML VL ONE (17:56)
[2020-03-19] MEDS ORDERED: METOCLOPRAMIDE HCL 5MG/ml INJ 2ml VIAL ONE (17:56)
[2020-03-19] MEDS ORDERED: ROCURONIUM 10MG/ML 10ML VIAL IV ONE (17:56)
[2020-03-19] MEDS ORDERED: PHENYLEPHRINE HCL 10 MG/ML VL ONE (18:44)
[2020-03-19] MEDS ORDERED: GLYCOPYRROLATE 0.2 MG/ML 1ML VIAL ONE (18:55)
[2020-03-19] MEDS ORDERED: NEOSTIGMINE 1 MG/ML INJ (10mg/10ML VIAL) ONE (18:55)
[2020-03-19] MEDS ORDERED: ONDANSETRON HCL 4 MG/2 ML VIAL IV PRN (20:00)
[2020-03-19] MEDS ORDERED: HYDROmorphone HCL 2 MG/ML VL IV PRN ×2 (20:00)
[2020-03-19] MEDS ORDERED: NALOXONE HCL 0.4 MG/ML VIAL IV PRN (20:00)
[2020-03-19] MEDS ORDERED: ACETAMINOPHEN IV 1000 MG/100ML (10MG/ML) IV PRN (20:15)
[2020-03-19] MEDS ORDERED: GUM (CHEWING) 1 GUM CHEW CHEW ONE (20:15)
[2020-03-19] MEDS ORDERED: HYDROmorphone HCL 2 MG/ML VL ONE (20:23)
[2020-03-19] MEDS: LACTATED RINGER'S 1,000 ML IV SCH (21:20)
[2020-03-20] VITALS: BP 144/92
[2020-03-20] MEDS: HYDROmorphone HCL 2 MG/ML VL IV PRN ×3 (01:31→18:24)
[2020-03-20] MEDS: diphenhdrAMINE HCL 50 MG/1 ML VL IV PRN ×2 (04:37→21:11)
[2020-03-20] MEDS: LACTATED RINGER'S 1,000 ML IV SCH ×2 (04:55→14:10)
[2020-03-20 06:00] LABS: Lymphocytes % (auto) 11.2 % (10.0-50.0); Nucleated Red Blood Cells % 0.2 %
[2020-03-20] MEDS: InsuLIN REG 1unit/0.01ml Soln (100units/ml) SC SCH ×3 (06:00→17:29)
[2020-03-20 06:03] LABS: Basophils # (auto) 0.1 10 ^3/uL (0-0.2); Basophils % (auto) 0.4 % (0.0-2.0); Eosinophils # (auto) 0 10 ^3/uL (0-0.8); Eosinophils % (auto) 0.2 % (0.0-7.0); Hematocrit 25.3 % (36.0-46.0); Hemoglobin 8.4 g/dL (12.2-16.2); Mean Corpuscular Hemoglobin 26.7 pg (28.0-32.0); Mean Corpuscular Hgb Conc. 33.2 g/dL (32.0-36.0); Mean Corpuscular Volume 80.5 fL (80.0-100.0); Monocytes # (auto) 0.7 10 ^3/uL (0-1.3); Monocytes % (auto) 4.1 % (0.0-12.0); Neutrophils # (auto) 14.9 10 ^3/uL (1.6-8.6); Neutrophils % (auto) 84.1 % (37.0-80.0); Red Blood Cells 3.15 10^6/uL (4.0-5.20); Red Cell Distribution Width 15.4 % (11.8-14.3); White Blood Cell 17.7 10^3/uL (4.4-10.8)
[2020-03-20] MEDS: ACCU-CHEK COMFORT CURVE STRIP VI SCH ×3 (06:14→17:21)
[2020-03-20] MEDS: ALBUTEROL SULF HFA 90MCG INH 200DOSE IN PRN ×2 (06:15→21:32)
[2020-03-20] MEDS: BUDESONIDE (INHALATION) 180 MCG IH IN SCH ×2 (06:15→21:31)
[2020-03-20 06:28] LABS: Potassium 3.1 mmol/L (3.5-5.1)
[2020-03-20 06:35] LABS: Albumin 1.7 g/dL (3.4-5.0); BUN/Creatinine Ratio 3.9; Bilirubin, Total 0.2 mg/dL (0.2-1.0); Calcium 7.6 mg/dL (8.5-10.1); Total Protein 6.6 g/dL (6.4-8.2)
[2020-03-20] MEDS: VANCOMYCIN HCL 125MG/5ML ORAL SOL PO SCH ×4 (07:05→21:22)
[2020-03-20 08:00] VITALS: BP 127/79
[2020-03-20] MEDS: FAMOTIDINE (10MG/ML) 2ML VL IV SCH (08:36)
[2020-03-20] MEDS: ASCORBIC ACID 1,000 MG TAB PO SCH (08:36)
[2020-03-20] MEDS: medroxyPROGESTERone ACETATE 5 MG TAB PO SCH (08:36)
[2020-03-20] MEDS: FLORASTOR (S. BOULARDII) 250 MG CAP PO SCH (08:36)
[2020-03-20] MEDS: FLUCONAZOLE 200MG/100ML 100 ML IV SCH (08:36)
[2020-03-20] MEDS: CHOLECALCIFEROL (VITD3) 2,000 UNIT CAP/TAB PO SCH (08:37)
[2020-03-20] MEDS: ERTAPENEM SOD INJ 1 GM in SODIUM CHL 0.9% 50 ML IV SCH (10:10)
[2020-03-20] MEDS ORDERED: POTASSIUM CHL 20 Meq TABLET PO ONE (11:45)
[2020-03-20] MEDS ORDERED: HYDROcodone-ACET 5/325MG TAB PO PRN (12:15)
[2020-03-20] MEDS ORDERED: SIMETHICONE 80 MG CHEWABLE TABLET PO PRN (12:15)
[2020-03-20 16:00] VITALS: BP 139/83
[2020-03-20] MEDS: FERROUS SULFATE 325mg EC TAB PO SCH (17:49)
[2020-03-20 22:00] VITALS: BP 108/64
[2020-03-21] VITALS (8 sets, daily range): BP systolic 108–139; BP diastolic 64–89
[2020-03-21] MEDS: InsuLIN REG 1unit/0.01ml Soln (100units/ml) SC SCH ×4 (00:15→17:35)
[2020-03-21] MEDS: ACCU-CHEK COMFORT CURVE STRIP VI SCH ×4 (00:21→17:35)
[2020-03-21] MEDS: HYDROcodone-ACET 5/325MG TAB PO PRN (00:21)
[2020-03-21] MEDS: LACTATED RINGER'S 1,000 ML IV SCH (00:22)
[2020-03-21 06:23] LABS: Basophils # (auto) 0.1 10 ^3/uL (0-0.2); Eosinophils # (auto) 0.1 10 ^3/uL (0-0.8); Eosinophils % (auto) 0.7 % (0.0-7.0); Hematocrit 20.1 % (36.0-46.0); Lymphocytes # (auto) 2.3 10 ^3/uL (0.4-5.4); Nucleated Red Blood Cells % 0.2 %
[2020-03-21 06:26] LABS: Basophils % (auto) 0.5 % (0.0-2.0); Lymphocytes % (auto) 17.7 % (10.0-50.0); Mean Corpuscular Hemoglobin 26.5 pg (28.0-32.0); Mean Corpuscular Hgb Conc. 32.8 g/dL (32.0-36.0); Mean Corpuscular Volume 80.8 fL (80.0-100.0); Monocytes # (auto) 1.1 10 ^3/uL (0-1.3); Monocytes % (auto) 8.2 % (0.0-12.0); Neutrophils # (auto) 9.7 10 ^3/uL (1.6-8.6); Neutrophils % (auto) 72.9 % (37.0-80.0); Red Blood Cells 2.49 10^6/uL (4.0-5.20); Red Cell Distribution Width 15.4 % (11.8-14.3); White Blood Cell 13.3 10^3/uL (4.4-10.8)
[2020-03-21 06:33] LABS: Hemoglobin 6.6 g/dL (12.2-16.2)
[2020-03-21 06:37] LABS: Calcium 7.2 mg/dL (8.5-10.1); Potassium 3.6 mmol/L (3.5-5.1)
[2020-03-21 06:39] LABS: BUN/Creatinine Ratio 4.8
[2020-03-21] MEDS: VANCOMYCIN HCL 125MG/5ML ORAL SOL PO SCH ×4 (06:43→22:11)
[2020-03-21] MEDS: FLORASTOR (S. BOULARDII) 250 MG CAP PO SCH (08:01)
[2020-03-21] MEDS: FLUCONAZOLE 200MG/100ML 100 ML IV SCH (08:01)
[2020-03-21] MEDS: FERROUS SULFATE 325mg EC TAB PO SCH ×2 (08:01→17:35)
[2020-03-21] MEDS: FAMOTIDINE (10MG/ML) 2ML VL IV SCH (08:01)
[2020-03-21] MEDS: ASCORBIC ACID 1,000 MG TAB PO SCH (08:02)
[2020-03-21] MEDS: CHOLECALCIFEROL (VITD3) 2,000 UNIT CAP/TAB PO SCH (08:02)
[2020-03-21] MEDS: BUDESONIDE (INHALATION) 180 MCG IH IN SCH ×2 (10:18→20:10)
[2020-03-21] MEDS: ALBUTEROL SULF HFA 90MCG INH 200DOSE IN PRN ×2 (10:18→20:10)
[2020-03-21 11:00] LABS: Urine Bacteria NONE SEEN /hpf (None Seen); Urine Blood TRACE /uL (Negative); Urine Specific Gravity 1.012 (1.001-1.035); Urine WBC 568 /hpf (0 - 5); Urine WBC Clumps PRESENT /hpf (None Seen)
[2020-03-21] MEDS: ERTAPENEM SOD INJ 1 GM in SODIUM CHL 0.9% 50 ML IV SCH (12:01)
[2020-03-21] MEDS: SODIUM CHLORIDE 0.9% 1,000 ML IV SCH (17:34)
[2020-03-21] MEDS: HYDROmorphone HCL 2 MG/ML VL IV PRN (19:56)
[2020-03-21] MEDS: diphenhdrAMINE HCL 50 MG/1 ML VL IV PRN (20:59)
[2020-03-21 22:21] LABS: Hemoglobin 8.4 g/dL (12.2-16.2)
[2020-03-21 22:23] LABS: Hematocrit 25.5 % (36.0-46.0)
[2020-03-22] VITALS: BP 135/83
[2020-03-22] MEDS: ACCU-CHEK COMFORT CURVE STRIP VI SCH ×5 (00:11→23:56)
[2020-03-22] MEDS: HYDROcodone-ACET 5/325MG TAB PO PRN ×2 (00:12→07:01)
[2020-03-22] MEDS: BUDESONIDE (INHALATION) 180 MCG IH IN SCH ×2 (06:16→18:25)
[2020-03-22] MEDS: ALBUTEROL SULF HFA 90MCG INH 200DOSE IN PRN (06:16)
[2020-03-22] MEDS: SODIUM CHLORIDE 0.9% 1,000 ML IV SCH (06:36)
[2020-03-22] MEDS: InsuLIN REG 1unit/0.01ml Soln (100units/ml) SC SCH ×5 (06:40→23:54)
[2020-03-22] MEDS: VANCOMYCIN HCL 125MG/5ML ORAL SOL PO SCH ×4 (06:41→22:00)
[2020-03-22 07:22] LABS: Basophils # (auto) 0.1 10 ^3/uL (0-0.2); Basophils % (auto) 0.5 % (0.0-2.0); Eosinophils # (auto) 0.1 10 ^3/uL (0-0.8); Hematocrit 27.7 % (36.0-46.0); Hemoglobin 9.2 g/dL (12.2-16.2); Lymphocytes # (auto) 3.2 10 ^3/uL (0.4-5.4); Lymphocytes % (auto) 25.7 % (10.0-50.0); Mean Corpuscular Hemoglobin 27.1 pg (28.0-32.0); Mean Corpuscular Hgb Conc. 33.1 g/dL (32.0-36.0); Monocytes % (auto) 8.2 % (0.0-12.0); Neutrophils # (auto) 8.1 10 ^3/uL (1.6-8.6); Neutrophils % (auto) 64.6 % (37.0-80.0); Nucleated Red Blood Cells % 0.1 %; Red Blood Cells 3.37 10^6/uL (4.0-5.20); White Blood Cell 12.6 10^3/uL (4.4-10.8)
[2020-03-22 08:00] VITALS: BP 138/80
[2020-03-22 08:09] LABS: Calcium 7.3 mg/dL (8.5-10.1); Potassium 3.3 mmol/L (3.5-5.1)
[2020-03-22 08:17] LABS: BUN/Creatinine Ratio 4.2
[2020-03-22] MEDS: FERROUS SULFATE 325mg EC TAB PO SCH ×2 (08:45→17:40)
[2020-03-22] MEDS: FLUCONAZOLE 200MG/100ML 100 ML IV SCH ×2 (08:46→09:49)
[2020-03-22] MEDS: FLORASTOR (S. BOULARDII) 250 MG CAP PO SCH (10:08)
[2020-03-22] MEDS: FAMOTIDINE (10MG/ML) 2ML VL IV SCH (10:08)
[2020-03-22] MEDS: CHOLECALCIFEROL (VITD3) 2,000 UNIT CAP/TAB PO SCH (10:08)
[2020-03-22] MEDS: ERTAPENEM SOD INJ 1 GM in SODIUM CHL 0.9% 50 ML IV SCH (10:08)
[2020-03-22] MEDS: ASCORBIC ACID 1,000 MG TAB PO SCH (10:08)
[2020-03-22] MEDS ORDERED: POTASSIUM CHL 20 Meq TABLET PO ONE (11:15)
[2020-03-22 16:00] VITALS: BP 148/97
[2020-03-22] MEDS: HYDROmorphone HCL 2 MG/ML VL IV PRN (21:50)
[2020-03-22] MEDS: diphenhdrAMINE HCL 50 MG/1 ML VL IV PRN (21:50)
[2020-03-22 23:45] VITALS: BP 143/91
[2020-03-23] MEDS: ALBUTEROL SULF HFA 90MCG INH 200DOSE IN PRN ×3 (01:36→19:14)
[2020-03-23] MEDS: InsuLIN REG 1unit/0.01ml Soln (100units/ml) SC SCH ×4 (06:00→22:00)
[2020-03-23] MEDS: ACCU-CHEK COMFORT CURVE STRIP VI SCH ×4 (06:06→22:00)
[2020-03-23] MEDS: VANCOMYCIN HCL 125MG/5ML ORAL SOL PO SCH ×4 (06:06→22:00)
[2020-03-23 08:00] VITALS: BP 85/63
[2020-03-23] MEDS: FLUCONAZOLE 200MG/100ML 100 ML IV SCH (08:33)
[2020-03-23] MEDS: FERROUS SULFATE 325mg EC TAB PO SCH ×2 (08:33→17:25)
[2020-03-23] MEDS: BUDESONIDE (INHALATION) 180 MCG IH IN SCH ×2 (10:00→19:14)
[2020-03-23] MEDS: ERTAPENEM SOD INJ 1 GM in SODIUM CHL 0.9% 50 ML IV SCH (10:04)
[2020-03-23] MEDS: FAMOTIDINE 20 MG TAB PO SCH (10:04)
[2020-03-23] MEDS: FLORASTOR (S. BOULARDII) 250 MG CAP PO SCH (10:04)
[2020-03-23] MEDS: ASCORBIC ACID 1,000 MG TAB PO SCH (10:05)
[2020-03-23] MEDS: CHOLECALCIFEROL (VITD3) 2,000 UNIT CAP/TAB PO SCH (10:05)
[2020-03-23] MEDS ORDERED: POTASSIUM EFFERVESENT TAB 25 MEQ PO ONE (15:15)
[2020-03-23] MEDS ORDERED: SENNA 8.6 MG TAB PO PRN (15:30)
[2020-03-23 16:00] VITALS: BP 137/86
[2020-03-23] MEDS: diphenhdrAMINE HCL 50 MG/1 ML VL IV PRN (21:17)
[2020-03-23] MEDS: HYDROmorphone HCL 2 MG/ML VL IV PRN (21:18)
[2020-03-24] VITALS: BP 135/92
[2020-03-24] MEDS: ACCU-CHEK COMFORT CURVE STRIP VI SCH ×4 (06:09→21:14)
[2020-03-24] MEDS: BUDESONIDE (INHALATION) 180 MCG IH IN SCH ×2 (06:15→18:55)
[2020-03-24 06:25] LABS: Basophils # (auto) 0 10 ^3/uL (0-0.2); Basophils % (auto) 0.5 % (0.0-2.0); Eosinophils # (auto) 0.1 10 ^3/uL (0-0.8); Eosinophils % (auto) 1.1 % (0.0-7.0); Hematocrit 27.7 % (36.0-46.0); Hemoglobin 9.3 g/dL (12.2-16.2); Lymphocytes # (auto) 2.2 10 ^3/uL (0.4-5.4); Lymphocytes % (auto) 27.2 % (10.0-50.0); Mean Corpuscular Hemoglobin 27.7 pg (28.0-32.0); Mean Corpuscular Hgb Conc. 33.6 g/dL (32.0-36.0); Mean Corpuscular Volume 82.4 fL (80.0-100.0); Monocytes # (auto) 0.7 10 ^3/uL (0-1.3); Monocytes % (auto) 8.5 % (0.0-12.0); Neutrophils # (auto) 5.1 10 ^3/uL (1.6-8.6); Neutrophils % (auto) 62.7 % (37.0-80.0); Nucleated Red Blood Cells % 0.1 %; Red Blood Cells 3.37 10^6/uL (4.0-5.20); Red Cell Distribution Width 15.9 % (11.8-14.3); White Blood Cell 8.2 10^3/uL (4.4-10.8)
[2020-03-24] MEDS: InsuLIN REG 1unit/0.01ml Soln (100units/ml) SC SCH ×4 (06:31→21:16)
[2020-03-24 06:45] LABS: Potassium 3.7 mmol/L (3.5-5.1)
[2020-03-24 06:52] LABS: BUN/Creatinine Ratio 4.8; Calcium 7.7 mg/dL (8.5-10.1)
[2020-03-24] MEDS: VANCOMYCIN HCL 125MG/5ML ORAL SOL PO SCH ×4 (07:46→21:14)
[2020-03-24 08:00] VITALS: BP 141/87
[2020-03-24] MEDS: FERROUS SULFATE 325mg EC TAB PO SCH ×2 (08:05→18:13)
[2020-03-24] MEDS: ALBUTEROL SULF HFA 90MCG INH 200DOSE IN PRN ×2 (08:21→18:55)
[2020-03-24] MEDS: FLUCONAZOLE 200MG/100ML 100 ML IV SCH (09:16)
[2020-03-24] MEDS: FAMOTIDINE 20 MG TAB PO SCH (09:16)
[2020-03-24] MEDS: ASCORBIC ACID 1,000 MG TAB PO SCH (09:16)
[2020-03-24] MEDS: FLORASTOR (S. BOULARDII) 250 MG CAP PO SCH (09:16)
[2020-03-24] MEDS: CHOLECALCIFEROL (VITD3) 2,000 UNIT CAP/TAB PO SCH (09:16)
[2020-03-24] MEDS: ERTAPENEM SOD INJ 1 GM in SODIUM CHL 0.9% 50 ML IV SCH (10:37)
[2020-03-24] MEDS ORDERED: POTASSIUM CHL 20 Meq TABLET PO ONE (13:15)
[2020-03-24] MEDS ORDERED: FUROSEMIDE 20 MG/2 ML VIAL IV ONE (13:15)
[2020-03-24] MEDS ORDERED: DOCUSATE SOD 100 MG CAP PO PRN (13:15)
[2020-03-24] MEDS ORDERED: HYDROmorphone HCL 2 MG/ML VL IV PRN (13:15)
[2020-03-24 16:00] VITALS: BP 109/77
[2020-03-24] MEDS: diphenhdrAMINE HCL 50 MG/1 ML VL IV PRN (21:15)
[2020-03-25] VITALS: BP 122/75
[2020-03-25] MEDS: ALBUTEROL SULF HFA 90MCG INH 200DOSE IN PRN (06:10)
[2020-03-25] MEDS: BUDESONIDE (INHALATION) 180 MCG IH IN SCH (06:10)
[2020-03-25] MEDS: ACCU-CHEK COMFORT CURVE STRIP VI SCH ×2 (06:15→12:03)
[2020-03-25] MEDS: VANCOMYCIN HCL 125MG/5ML ORAL SOL PO SCH ×2 (06:15→12:27)
[2020-03-25] MEDS: InsuLIN REG 1unit/0.01ml Soln (100units/ml) SC SCH ×2 (06:41→12:05)
[2020-03-25 07:19] VITALS: BP 145/90
[2020-03-25 08:00] VITALS: BP 145/90
[2020-03-25] MEDS: FERROUS SULFATE 325mg EC TAB PO SCH (08:23)
[2020-03-25] MEDS: FLUCONAZOLE 200MG/100ML 100 ML IV SCH (08:24)
[2020-03-25] MEDS: FLORASTOR (S. BOULARDII) 250 MG CAP PO SCH (09:34)
[2020-03-25] MEDS: ERTAPENEM SOD INJ 1 GM in SODIUM CHL 0.9% 50 ML IV SCH (09:34)
[2020-03-25] MEDS: ASCORBIC ACID 1,000 MG TAB PO SCH (09:34)
[2020-03-25] MEDS: CHOLECALCIFEROL (VITD3) 2,000 UNIT CAP/TAB PO SCH (09:34)
[2020-03-25] MEDS: FAMOTIDINE 20 MG TAB PO SCH (09:34)
[2020-03-25 11:07] LABS: Potassium 3.6 mmol/L (3.5-5.1)
[2020-03-25 11:14] LABS: Calcium 7.9 mg/dL (8.5-10.1)
[2020-03-25 16:02] VITALS: BP 129/97
[2020-03-25 16:04] VITALS: BP 145/90
== END 2020-03-25 17:43 | disposition home or self-care (01) | DRG 853 ==
LOC: EDBD 12:52 → ER 12:52 → TELE 22:50 → TELE-EAST 03-09 18:08
PROVIDERS: ADMIT Nurse Practitioner Family; ATTEND Internal Medicine
PROC: 30233N1 Transfusion of Nonautologous Red Blood Cells into Peripheral Vein, Percutaneous Approach (ICD-10-PCS; 2020-03-15)
PROC: 0DJ08ZZ Inspection of Upper Intestinal Tract, Via Natural or Artificial Opening Endoscopic (ICD-10-PCS; principal; 2020-03-17 09:58)
PROC: 0DNW0ZZ Release Peritoneum, Open Approach (ICD-10-PCS; 2020-03-19)
PROC: 0UBF0ZZ Excision of Cul-de-sac, Open Approach (ICD-10-PCS; 2020-03-19)
PROC: 0UDB7ZZ Extraction of Endometrium, Via Natural or Artificial Opening (ICD-10-PCS; 2020-03-19)
DX: A41.89 Other specified sepsis (principal); E10.11 Type 1 diabetes mellitus with ketoacidosis with coma; J12.82 Pneumonia due to coronavirus disease 2019; J85.2 Abscess of lung without pneumonia; J96.01 Acute respiratory failure with hypoxia; K85.90 Acute pancreatitis without necrosis or infection, unspecified; N17.0 Acute kidney failure with tubular necrosis; U07.1 COVID-19; J85.1 Abscess of lung with pneumonia; A04.72 Enterocolitis due to Clostridium difficile, not specified as recurrent; B37.41 Candidal cystitis and urethritis; I48.20 Chronic atrial fibrillation, unspecified; N13.6 Pyonephrosis; K92.1 Melena; D64.9 Anemia, unspecified; E10.22 Type 1 diabetes mellitus with diabetic chronic kidney disease; E78.5 Hyperlipidemia, unspecified; E86.0 Dehydration; E87.5 Hyperkalemia; H10.9 Unspecified conjunctivitis; I12.9 Hypertensive chronic kidney disease with stage 1 through stage 4 chronic kidney disease, or unspecified chronic kidney disease; N18.9 Chronic kidney disease, unspecified; N85.4 Malposition of uterus; N92.1 Excessive and frequent menstruation with irregular cycle; N73.6 Female pelvic peritoneal adhesions (postinfective); Z79.4 Long term (current) use of insulin; Z79.899 Other long term (current) drug therapy; Z80.3 Family history of malignant neoplasm of breast; Z87.440 Personal history of urinary (tract) infections; Z98.891 History of uterine scar from previous surgery; Z88.8 Allergy status to other drugs, medicaments and biological substances; N83.8 Other noninflammatory disorders of ovary, fallopian tube and broad ligament
CPT/HCPCS: 36415; 36600; 43235; 71045; 71250; 74176; 76775; 76830; 76856; 80048; 80053; 81001; 82150; 82270; 82306; 82378; 82805; 82947; 82962; 83036; 83690; 83735; 84100; 84702; 85007; 85014; 85018; 85025; 85027; 85045; 85610; 85652; 85730; 86300; 86301; 86304; 86850; 86900; 86901; 86920; 87040; 87086; 87088; 87426; 87493; 94640; 96365; 96366; 96372; 96375; 99291; G0378; J0131; J0696; J1100; J1335; J1450; J1815; J1956; J2250; J2405; J2543; J2704; J3490

== ENCOUNTER 2020-06-30 10:15 | Emergency (ER) | payer OTHER ==
[~2020-06-30] VITALS: Ht 162.6 cm; Wt 54.4 kg
[~2020-06-30 10:15] MED LIST: ATOR20TA PO
[2020-06-30 12:38] VITALS: BP 128/92
== END 2020-06-30 14:50 | disposition home or self-care (01) ==
LOC: ER 10:15
DX: N39.0 Urinary tract infection, site not specified (principal); K59.00 Constipation, unspecified
CPT/HCPCS: 74018

== ENCOUNTER 2021-09-17 13:52 | Inpatient (IN) | payer OTHER ==
[~2021-09-17] VITALS: Ht 152.4 cm; Wt 54.3 kg
[2021-09-17] MEDS ORDERED: SODIUM CHLORIDE 0.9% 1,000 ML IV ONE ×3 (15:00→19:15)
[2021-09-17 15:55] LABS: Basophils # (auto) 0.1 10 ^3/uL (0-0.2); Basophils % (auto) 0.4 % (0.0-2.0); Eosinophils # (auto) 0 10 ^3/uL (0-0.8); Eosinophils % (auto) 0.1 % (0.0-7.0); Hematocrit 30.8 % (36.0-46.0); Hemoglobin 9.7 g/dL (12.2-16.2); Lymphocytes % (auto) 10.6 % (10.0-50.0); Mean Corpuscular Hemoglobin 27.2 pg (28.0-32.0); Mean Corpuscular Hgb Conc. 31.6 g/dL (32.0-36.0); Mean Corpuscular Volume 85.9 fL (80.0-100.0); Monocytes # (auto) 1.7 10 ^3/uL (0-1.3); Monocytes % (auto) 8.7 % (0.0-12.0); Neutrophils # (auto) 15.2 10 ^3/uL (1.6-8.6); Neutrophils % (auto) 80.2 % (37.0-80.0); Red Blood Cells 3.59 10^6/uL (4.0-5.20)
[2021-09-17 16:06] LABS: Albumin 2.9 g/dL (3.4-5.0); Calcium 9.1 mg/dL (8.5-10.1); Potassium 5.4 mmol/L (3.5-5.1)
[2021-09-17 16:10] LABS: BUN/Creatinine Ratio 12.2; Bilirubin, Total 0.3 mg/dL (0.2-1.0); Total Protein 8.1 g/dL (6.4-8.2)
[2021-09-17] MEDS ORDERED: FUROSEMIDE 20 MG/2 ML VIAL IV ONE (18:00)
[2021-09-17] MEDS ORDERED: SODIUM BICARBONATE 8.4% INJ 50ML SYRINGE IV ONE (18:00)
[2021-09-17] MEDS ORDERED: ALBUTEROL SULF 2.5 MG/0.5ML(0.5%) NEB SOLN NEB ONE (18:00)
[2021-09-17] MEDS ORDERED: SODIUM ZIRCONIUM CYCL 10 GM PAK PO ONE (18:00)
[2021-09-17] MEDS ORDERED: PIPERACILLIN-TAZOB 3.375GM 100 ML IV ONE (18:00)
[2021-09-17] MEDS ORDERED: DEXTROSE (50%) 50ML SYRG IV ONE (18:00)
[2021-09-17] MEDS ORDERED: InsuLIN REG 1unit/0.01ml Soln (100units/ml) IV ONE (18:00)
[2021-09-17] MEDS ORDERED: CALCIUM GLUC 1,000mg/50ml-NS 50 ML IV ONE (18:00)
[2021-09-17 19:06] LABS: Urine Bacteria FEW /hpf (None Seen); Urine Blood 3+ /uL (Negative); Urine Budding Yeast MODERATE /hpf (None Seen); Urine WBC 3886 /hpf (0 - 5); Urine WBC Clumps PRESENT /hpf (None Seen)
[2021-09-17] MEDS ORDERED: AZITHROMYCIN 500MG/ 250ML 250 ML IV ONE (19:15)
[2021-09-17] MEDS: SODIUM CHLORIDE 0.9% 1,000 ML IV SCH (21:45)
[2021-09-17] MEDS ORDERED: DEXTROSE (50%) 50ML SYRG IV PRN (21:45)
[2021-09-17] MEDS ORDERED: HYDROcodone-ACET 5/325MG TAB PO PRN (21:45)
[2021-09-17] MEDS ORDERED: ACETAMINOPHEN 325 MG TAB PO PRN (21:45)
[2021-09-17] MEDS ORDERED: IBUPROFEN 400 MG TAB PO PRN (21:45)
[2021-09-17] MEDS: METOPROLOL TARTRATE 25 MG TAB PO SCH (22:46)
[2021-09-17] MEDS: HEPARIN SODIUM (PORCINE) 5000 UNITS/ML 1ML VIAL SC SCH (22:48)
[2021-09-17] MEDS: INSULIN LANTUS (GLARGINE) 1 /0.01ml (100units/ml) SC SCH (22:48)
[2021-09-17] MEDS: MORPHINE SULFATE INJ 2 MG/ml SYRG IV PRN (22:51)
[2021-09-17] MEDS: ONDANSETRON HCL 4 MG/2 ML VIAL IV PRN (22:52)
[2021-09-17] MEDS ORDERED: NITROGLYCERIN 0.4 MG SL TAB SL PRN (23:45)
[2021-09-17] MEDS ORDERED: MORPHINE SULFATE INJ 2 MG/ml SYRG IV PRN (23:45)
[2021-09-18] MEDS: InsuLIN REG 1unit/0.01ml Soln (100units/ml) SC SCH ×5 (00:34→23:22)
[2021-09-18 01:30] VITALS: BP 138/89
[2021-09-18] MEDS ORDERED: INS7030I SC (02:41)
[2021-09-18] MEDS ORDERED: TRAM50TA2 PO (02:41)
[2021-09-18] MEDS ORDERED: CEPH-322 PO (02:41)
[2021-09-18] MEDS ORDERED: INSLANTI SC (02:41)
[2021-09-18 05:00] VITALS: BP 153/89
[2021-09-18] MEDS: SODIUM CHLORIDE 0.9% 1,000 ML IV SCH ×3 (05:25→21:22)
[2021-09-18] MEDS: INSULIN LANTUS (GLARGINE) 1 /0.01ml (100units/ml) SC SCH ×2 (05:43→23:16)
[2021-09-18] MEDS: ACCU-CHEK COMFORT CURVE STRIP VI SCH ×5 (06:17→23:06)
[2021-09-18 08:17] LABS: Basophils # (auto) 0.1 10 ^3/uL (0-0.2); Eosinophils # (auto) 0.1 10 ^3/uL (0-0.8); Eosinophils % (auto) 0.3 % (0.0-7.0)
[2021-09-18 08:20] LABS: Basophils % (auto) 0.7 % (0.0-2.0); Hematocrit 27.2 % (36.0-46.0); Lymphocytes % (auto) 15.1 % (10.0-50.0); Mean Corpuscular Hemoglobin 27.7 pg (28.0-32.0); Mean Corpuscular Volume 84.2 fL (80.0-100.0); Monocytes % (auto) 9.9 % (0.0-12.0); Neutrophils # (auto) 14.7 10 ^3/uL (1.6-8.6); Red Blood Cells 3.23 10^6/uL (4.0-5.20); Red Cell Distribution Width 13.1 % (11.8-14.3); White Blood Cell 19.8 10^3/uL (4.4-10.8)
[2021-09-18 08:38] LABS: Calcium 8.9 mg/dL (8.5-10.1)
[2021-09-18 08:44] LABS: Albumin 2.4 g/dL (3.4-5.0); BUN/Creatinine Ratio 12.7; Bilirubin, Total 0.2 mg/dL (0.2-1.0); Total Protein 7.6 g/dL (6.4-8.2)
[2021-09-18 09:00] VITALS: BP 111/63
[2021-09-18] MEDS: METOPROLOL TARTRATE 25 MG TAB PO SCH ×2 (10:00→21:22)
[2021-09-18] MEDS ORDERED: AZITHROMYCIN 500MG/ 250ML 250 ML IV SCH (10:00)
[2021-09-18] MEDS: MORPHINE SULFATE INJ 2 MG/ml SYRG IV PRN ×2 (10:12→21:22)
[2021-09-18] MEDS: cefTRIAXone 1GM/50ML D5W 50 ML IV SCH (10:15)
[2021-09-18] MEDS: HEPARIN SODIUM (PORCINE) 5000 UNITS/ML 1ML VIAL SC SCH ×2 (10:22→21:24)
[2021-09-18 13:00] VITALS: BP 148/95
[2021-09-18 17:00] VITALS: BP 125/80
[2021-09-18 22:00] VITALS: BP 120/84
[2021-09-18] MEDS: DOCUSATE SOD 100 MG CAP PO PRN (23:05)
[2021-09-19 05:00] VITALS: BP 114/70
[2021-09-19] MEDS: ONDANSETRON HCL 4 MG/2 ML VIAL IV PRN ×2 (05:05→09:48)
[2021-09-19 05:21] LABS: Basophils # (auto) 0.1 10 ^3/uL (0-0.2); Basophils % (auto) 0.6 % (0.0-2.0); Eosinophils # (auto) 0 10 ^3/uL (0-0.8); Hemoglobin 8.8 g/dL (12.2-16.2); Nucleated Red Blood Cells % 0.1 %; Red Cell Distribution Width 13.3 % (11.8-14.3)
[2021-09-19 05:27] LABS: Eosinophils % (auto) 0.2 % (0.0-7.0); Hematocrit 26.6 % (36.0-46.0); Lymphocytes # (auto) 4.2 10 ^3/uL (0.4-5.4); Lymphocytes % (auto) 18.9 % (10.0-50.0); Mean Corpuscular Hemoglobin 28.4 pg (28.0-32.0); Mean Corpuscular Hgb Conc. 33.2 g/dL (32.0-36.0); Mean Corpuscular Volume 85.5 fL (80.0-100.0); Monocytes # (auto) 2.1 10 ^3/uL (0-1.3); Monocytes % (auto) 9.6 % (0.0-12.0); Neutrophils # (auto) 15.5 10 ^3/uL (1.6-8.6); Neutrophils % (auto) 70.7 % (37.0-80.0); Red Blood Cells 3.11 10^6/uL (4.0-5.20)
[2021-09-19 05:36] LABS: Calcium 8.4 mg/dL (8.5-10.1); Potassium 3.9 mmol/L (3.5-5.1)
[2021-09-19 05:40] LABS: BUN/Creatinine Ratio 12.4; Magnesium 1.7 mg/dL (1.6-2.6)
[2021-09-19] MEDS: InsuLIN REG 1unit/0.01ml Soln (100units/ml) SC SCH ×3 (06:00→18:00)
[2021-09-19] MEDS: ACCU-CHEK COMFORT CURVE STRIP VI SCH ×3 (06:08→18:43)
[2021-09-19] MEDS: SODIUM CHLORIDE 0.9% 1,000 ML IV SCH ×3 (06:11→21:15)
[2021-09-19] MEDS: INSULIN LANTUS (GLARGINE) 1 /0.01ml (100units/ml) SC SCH ×3 (07:00→22:22)
[2021-09-19 08:00] VITALS: BP 146/88
[2021-09-19 09:00] VITALS: BP 146/88
[2021-09-19] MEDS: cefTRIAXone 1GM/50ML D5W 50 ML IV SCH (09:41)
[2021-09-19] MEDS: METOPROLOL TARTRATE 25 MG TAB PO SCH ×2 (09:42→22:24)
[2021-09-19] MEDS: MORPHINE SULFATE INJ 2 MG/ml SYRG IV PRN ×2 (09:44→16:21)
[2021-09-19] MEDS: HEPARIN SODIUM (PORCINE) 5000 UNITS/ML 1ML VIAL SC SCH ×2 (09:47→22:22)
[2021-09-19] MEDS ORDERED: FAMOTIDINE (10MG/ML) 2ML VL IV SCH (10:00)
[2021-09-19 13:00] VITALS: BP 137/89
[2021-09-19] MEDS: DOCUSATE SOD 100 MG CAP PO PRN (16:13)
[2021-09-19 17:00] VITALS: BP 155/88
[2021-09-19 22:00] VITALS: BP 148/89
[2021-09-20] MEDS: ACCU-CHEK COMFORT CURVE STRIP VI SCH (00:25)
[2021-09-20] MEDS: InsuLIN REG 1unit/0.01ml Soln (100units/ml) SC SCH (00:27)
[2021-09-20] MEDS: INSULIN LANTUS (GLARGINE) 1 /0.01ml (100units/ml) SC SCH (00:28)
[2021-09-20] MEDS: MORPHINE SULFATE INJ 2 MG/ml SYRG IV PRN (00:35)
[2021-09-20 01:05] VITALS: BP 142/86
== END 2021-09-20 01:45 | disposition short-term general hospital (02) | DRG 871 ==
LOC: EDBD 13:52 → ER 13:52 → OVERFLOW 23:36 → WEST WING 09-18 01:10
PROVIDERS: ADMIT Nurse Practitioner Family; ATTEND Internal Medicine
DX: A41.9 Sepsis, unspecified organism (principal); J18.9 Pneumonia, unspecified organism; N39.0 Urinary tract infection, site not specified; N17.9 Acute kidney failure, unspecified; E44.0 Moderate protein-calorie malnutrition; E87.5 Hyperkalemia; D75.839 Thrombocytosis, unspecified; E11.621 Type 2 diabetes mellitus with foot ulcer; E11.22 Type 2 diabetes mellitus with diabetic chronic kidney disease; Z20.822 Contact with and (suspected) exposure to COVID-19; E11.40 Type 2 diabetes mellitus with diabetic neuropathy, unspecified; E11.65 Type 2 diabetes mellitus with hyperglycemia; L97.509 Non-pressure chronic ulcer of other part of unspecified foot with unspecified severity; I12.9 Hypertensive chronic kidney disease with stage 1 through stage 4 chronic kidney disease, or unspecified chronic kidney disease; N18.30 Chronic kidney disease, stage 3 unspecified; E88.09 Other disorders of plasma-protein metabolism, not elsewhere classified; Z87.440 Personal history of urinary (tract) infections; Z68.23 Body mass index [BMI] 23.0-23.9, adult
CPT/HCPCS: 36415; 71045; 73700; 76775; 80048; 80053; 81001; 82010; 82962; 83036; 83735; 83930; 84132; 84484; 85025; 87086; 94640; 96361; 96374; 96375; G0378; J0696; J1815; J2405; J2543; J3490